=== PATIENT | female | born 2000 | race African-American/Black ===

== ENCOUNTER 2019-06-15 13:05 | Emergency (ER) | payer MEDICAID ==
[~2019-06-15] VITALS: Ht 160 cm; Wt 76.7 kg
[2019-06-15 13:14] VITALS: Ht 160 cm; Wt 76.7 kg
[2019-06-15 15:01] LABS: microscopic required? YES; urine erythrocyte 3+ (NEGATIVE)
[2019-06-15 17:05] VITALS: BP 121/81
== END 2019-06-15 17:05 | disposition home or self-care (01) ==
LOC: ED 13:05
PROVIDERS: Emergency Medicine
DX: N11.1 Chronic obstructive pyelonephritis (principal)
CPT/HCPCS: 82962; 87491; 87591; J0696; J7030; J7060

== ENCOUNTER 2019-08-07 12:35 | Emergency (ER) | payer MEDICAID ==
[~2019-08-07] VITALS: Ht 157.5 cm; Wt 74.8 kg
[2019-08-07 12:57] VITALS: BP 120/84; Ht 157.5 cm; Wt 74.8 kg
== END 2019-08-07 14:48 | disposition home or self-care (01) ==
LOC: ED 12:35
DX: K59.00 Constipation, unspecified (principal)